=== PATIENT | female | born 2000 | race African-American/Black ===

== ENCOUNTER 2023-11-02 22:53 | Observation (INO) | payer OTHER, SELFPAY ==
--- NOTE | 2023-11-02 23:21 | DI.US.S_ITS ---
PROCEDURE: US OB LIMITED INDICATIONS: vaginal bleeding: placenta location/status, YEHUDA OUTSIDE/PRIOR DATING DATA: Last menstrual period (LMP): 02/22/2023. LMP-based estimated date of delivery (QUINTON): 02/28/2024. First dating scan (date and location): Not applicable. Estimated date of delivery (QUINTON) from first dating scan: Not applicable. The calculations are made using the clinical QUINTON of 02/28/2024. TECHNIQUE: Real-time scanning was performed of the fetus, with image documentation and biometric measurements. Biophysical profile was also obtained. Endovaginal scanning: COMPARISON: None. FINDINGS: General: A single living intrauterine gestation is present. Presentation: Breech. Placenta: Placental position is posterior , without previa. Amniotic fluid index: 13.9 cm, normal range is 5-24 cm. Single deepest vertical pocket is 4.0 cm. heart rate: 125 beats per minute. Maternal cervical canal: 3.5 cm long. Normal lower limit is 2.5 cm. Clinically estimated gestational age: Not applicable Composite gestational age from present scan: 23 week 2 day Visualized anatomy is within normal limits. Probable uterine fibroid right posterior 2.6 x 2.0 x 2.9 cm IMPRESSION: Single live intrauterine consistent with 23 week 2 day gestation Uterine fibroid For reference only DELETE FROM FINAL REPORT Less than 28 weeks; normal is <5 28-34 weeks; normal is <4 >34 weeks; normal is <3.5 Measurement variability for biometric dating: +/- 7 days from 14 weeks to 15 weeks 6 days gestation, +/- 10 days from 16 weeks to 21 weeks 6 days gestation, +/- 2 weeks from 22 weeks to 27 weeks 6 days gestation, +/- 3 weeks for 28 weeks gestation or later. weight reference: 4500 g or EFW >90/95% is considered macrosomia or large for gestational age. EFW <10% is small for gestational age. EFW 5% or less is considered intra-uterine growth restriction. Approved by: Dusty Cat M.D. on 11/03/2023 at 0:43
[2023-11-02 23:40] LABS: Appearance Urine UA CLEAR; Bilirubin Urine UA NEGATIVE (NEGATIVE); Glucose Urine UA NEGATIVE (Negative); Ketones Urine UA NEGATIVE (NEGATIVE); Leukocyte Esterase Urine UA NEGATIVE (NEGATIVE); Nitrite Urine UA NEGATIVE (Negative); Occult Blood Urine UA TRACE-INTACT (Negative); Protein Urine UA NEGATIVE (Negative); Specific Gravity Urine UA <=1.005 (1.000-1.035); Urobilinogen Urine UA 0.2 E.U./dL (0.2)
[2023-11-02 23:41] LABS: Color Urine UA Straw
== END 2023-11-03 01:00 | disposition home or self-care (01) ==
PROVIDERS: Admitting Provider Family Medicine; Referring Provider Family Medicine; Visit Provider Family Medicine
DX: O26.892 Other specified pregnancy related conditions, second trimester (principal); M54.9 Dorsalgia, unspecified; Z3A.23 23 weeks gestation of pregnancy
CPT/HCPCS: 76815; 81003; G0378; G0379

== ENCOUNTER → 2023-11-07 07:28 | Outpatient (CLI) | payer OTHER, SELFPAY ==
--- NOTE | 2023-11-07 07:29 | DI.US.S_ITS ---
PROCEDURE: US OB >= 14 WEEKS FETUS INDICATIONS: anatomy, overdue OUTSIDE/PRIOR DATING DATA: Last menstrual period (LMP): 05/24/2023. LMP-based estimated date of delivery (QUINTON): 02/28/2024. First dating scan (date and location): Unknown. Estimated date of delivery (QUINTON) from first dating scan: Unknown. The calculations are made using the clinical QUINTON of 02/28/2024. TECHNIQUE: Real-time scanning was performed of the fetus, with image documentation and biometric measurements. COMPARISON: [facility], OB LIMITED, 11/03/2023, 0:13. FINDINGS: General: A single living intrauterine gestation is present. Presentation: Breech. Placenta: Placental position is posterior , without previa. Amniotic fluid index: 14.6 cm, normal range is 5-24 cm. Single deepest vertical pocket is 4.7 cm. heart rate: 120 beats per minute. Maternal cervical canal: 4.2 cm long. Normal lower limit is 2.5 cm. biometrics: Biparietal diameter: 5.5 cm 22 weeks 6 days Head circumference: 21.3 cm 23 weeks 3 days Abdominal circumference: 19.5 cm 24 weeks 1 day Femur length: 4.4 cm 24 weeks 4 days Clinically estimated gestational age: 23 weeks 6 days Composite gestational age from present scan: 23 weeks 5 days Estimated weight and percentile: 668 g 56th percentile Anatomic survey: Neuro: Ventricles are non-dilated at less than 10 mm. Cisterna magna is normal at 3-11 mm. Cerebellum is normal in size and morphology. Nuchal skin fold: Normal at less than 6 mm between 14-21 weeks gestational age. Face: Nose and lips, facial profile are normal. Spine: No evidence for spina bifida. Heart: 4-chambered heart is present, with normal ventricular outflow tracts. Diaphragm: Diaphragm is intact. Stomach: Left-sided stomach is present. Kidneys: No hydronephrosis. Normal is less than 5 mm in 2nd trimester, less than 7 mm in 3rd trimester. Cord: 3-vessel cord has orthotopic insertion. Bladder: Normal in size. Extremities: All 4 extremities identified. Other: Right posterior intramural fibroid is again noted, similar in size currently measuring 2.5 x 2.8 x 2.0 cm compared to 2.6 x 2.0 x 2.9 cm. IMPRESSION: Single live intrauterine with gestational age today of 23 weeks 5 days. Anatomy is within normal limits. We strive to produce accurate, complete, and clear reports of imaging services. To assist us in improving patient care, this report was composed using standard report templates and voice recognition software. Therefore, it may contain abnormal punctuation, insertions and/or omissions. Occasional wrong-word or sound-alike substitutions may occur. Though we review the report and make efforts to correct it, we do recommend that the report be read carefully in proper context to recognize any text inaccuracies. Dictated by: Johana Lynn M.D. on 11/07/2023 at 9:15 Approved by: Johana Lynn M.D. on 11/07/2023 at 9:21
== END ==
LOC: US 07:29
PROVIDERS: Referring Provider Family Medicine; Visit Provider Family Medicine
DX: Z34.82 Encounter for supervision of other normal pregnancy, second trimester (principal); Z3A.23 23 weeks gestation of pregnancy
CPT/HCPCS: 76811

== ENCOUNTER → 2023-11-28 12:48 | Outpatient (CLI) | payer OTHER, SELFPAY ==
[2023-11-28 14:41] LABS: Add Manual Diff / Slide Review NO; Basophils Absolute Auto 0 /uL (0-100); Basophils Percent Auto 0.2 % (0-2); Eosinophils Absolute Auto 100 /uL (0-450); Hematocrit 30.2 % (36-46); Hemoglobin 10.5 g/dL (12.0-16.0); Lymphocytes Absolute Auto 2400 /uL (1100-4500); Mean Corpuscular HGB Conc 34.9 % (30-36); Mean Corpuscular Hemoglobin 30.4 PG (26-34); Mean Corpuscular Volume 87.3 fL (80-100); Monocytes Absolute Auto 1100 /uL (0-900); Monocytes Percent Auto 10.3 % (3-14); Neutrophils Absolute Auto 7200 /uL (1500-7000); Neutrophils Percent Auto 66.5 % (50-75); Platelet Count 298 X10^3/uL (150-400); Red Blood Cell Count 3.45 X10^6/uL (4.0-5.2); Red Cell Distribution Width 14.1 % (11.6-14.8); White Blood Cell Count 10.8 X10^3/uL (4.5-11.0)
[2023-11-28 15:13] LABS: Alanine Aminotransferase 11 IU/L (<35); Aspartate Aminotransferase 18 IU/L (14-36); BUN Creatinine Ratio 10.7 (6-22); Blood Urea Nitrogen 6 mg/dL (7-17); Estimated Glomerular Filt Rate > 60 mL/min (>60); GTT (PREG) 1 Hour PP 50gm Dose 111 mg/dL (76-139); Uric Acid 3.9 mg/dL (2.5-6.2)
== END ==
PROVIDERS: Referring Provider Family Medicine; Visit Provider Family Medicine
DX: O13.9 Gestational [pregnancy-induced] hypertension without significant proteinuria, unspecified trimester (principal)
CPT/HCPCS: 82565; 82950; 84450; 84460; 84520; 84550; 85025

== ENCOUNTER → 2024-02-06 11:43 | Outpatient (CLI) | payer OTHER, SELFPAY ==
[2024-02-07 12:41] LABS: Strep Grp B PCR NEG for Grp B Strep
== END ==
PROVIDERS: Visit Provider Family Medicine
DX: Z34.80 Encounter for supervision of other normal pregnancy, unspecified trimester (principal)
CPT/HCPCS: 87653

== ENCOUNTER 2024-02-13 16:36 | Outpatient (CLI) | payer OTHER, SELFPAY ==
--- NOTE | 2024-02-13 18:09 | P.TNLD_ITS ---
Visit Information Visit Information Date of evaluation: 02/13/24 Primary OB Provider: Donald Cantu Reason for Evaluation: Yes rupture of membranes Comments/Additional reasons for admission: 23-year-old at [place] 37+6 weeks sent to L and D from clinic due to report of intermittent leakage of fluid for past 4 days. Endorses normal movement, denies vaginal bleeding or regular contractions. notable for anemia on iron supplement, GERD on H2 glo. She is also taking baby aspirin daily for preeclampsia prophylaxis due to presence of multiple medium risk factors. [facility] Surgical History (Updated 10/30/23 @ 10:36 by Arleen Landon RN) H/O dilation and curettage [place] teeth extracted Family History (Updated 10/30/23 @ 10:43 by Arleen Landon RN) Grandfather Hypertension Grandmother Cervical cancer Grandfather Hyperlipidemia Grandmother Hyperlipidemia Mother Gynecological disorder Tumor of thyroid Sister Asthma Social History marital status: unmarried,single number of children: 0 household members: none lives independently: Yes caregiver/support person: No housing: apartment pets and animals: No education level: high school occupational status: employed current occupational exposures/hazards: Yes (X-rays) special marcela needs: No travel history: recent seatbelt use: sometimes water heater temp set < 120 deg: Yes working smoke detector in home: Yes fire extinguisher in home: Yes carbon monox detector in home: Yes firearms in home: No do you feel safe at home: Yes Smoking Status: Former smoker Tobacco: How many years used: 2 second hand exposure: No alcohol intake: former substance use type: does not use during the past year weight has: remained stable well-balanced diet: about half the time daily servings fruits/ve-4 caffeine: No Type(s) of exercise: walking Review of Systems Review of Systems ROS: Yes All systems reviewed with the patient and are negative except as otherwise documented Exam Narrative Exam Narrative: General: Well-nourished, no distress HEENT: NC/AT, EOMI, moist mucous membranes CV: RRR, normal S1 S2, no m/g/r Resp: CTAB Abd: Gravid, soft, NTND, +BS : Normal external female genitalia, vaginal mucosa pink and moist, speculum exam in clinic revealed moderate white vaginal discharge but no pooling or fluid leaking from cervical os, which is closed on visual examination Ext: Full ROM, no edema Skin: No rash or lesions Neuro: A&O x3, normal tone, no focal deficits Evaluation Evaluation Baseline heart rate: 125 Variability: Moderate (11-25) monitor accelerations: Present Monitor Decelerations: Absent Category of Tracing: Reactive Status: Category l Non-invasive Membranes Rupture Test: negative Diagnosis, Plan/Disposition Final Diagnosis (1) 37 weeks gestation of : Status: Acute (2) Vaginal discharge during in third trimester: Status: Acute Plan/Disposition Plan: Speculum exam reassuring, AmniSure negative for rupture of membranes. NST reactive with category 1 strip. Discharged home with labor precautions, follow- up in 1 week for routine care. OB Disposition: home
== END 2024-02-13 17:25 | disposition home or self-care (01) ==
LOC: OB 02-17 06:37
PROVIDERS: Referring Provider Family Medicine; Visit Provider Family Medicine
DX: O26.893 Other specified pregnancy related conditions, third trimester (principal); N89.8 Other specified noninflammatory disorders of vagina; Z3A.37 37 weeks gestation of pregnancy
CPT/HCPCS: 59025; 84112; G0378; G0379

== ENCOUNTER 2024-02-15 19:36 | Outpatient (CLI) | payer OTHER, SELFPAY | END 2024-02-15 20:21 | disposition home or self-care (01) | LOC: OB 02-17 06:39 | PROVIDERS: Referring Provider Obstetrics & Gynecology; Visit Provider Obstetrics & Gynecology | DX: O36.8130 Decreased fetal movements, third trimester, not applicable or unspecified (principal); Z3A.38 38 weeks gestation of pregnancy | CPT/HCPCS: 59025; G0378; G0379 ==

== ENCOUNTER 2024-02-23 01:53 | Inpatient (IN) | payer OTHER, SELFPAY ==
[2024-02-23 03:42] LABS: Add Manual Diff / Slide Review NO; Basophils Absolute Auto 0 /uL (0-100); Basophils Percent Auto 0.3 % (0-2); Eosinophils Absolute Auto 100 /uL (0-450); Eosinophils Percent Auto 0.9 % (2-4); Hematocrit 33.8 % (36-46); Hemoglobin 11.7 g/dL (12.0-16.0); Lymphocytes Absolute Auto 2100 /uL (1100-4500); Lymphocytes Percent Auto 22.3 % (25-40); Mean Corpuscular HGB Conc 34.5 % (30-36); Mean Corpuscular Hemoglobin 30.2 PG (26-34); Mean Corpuscular Volume 87.6 fL (80-100); Monocytes Absolute Auto 1000 /uL (0-900); Monocytes Percent Auto 10.4 % (3-14); Neutrophils Absolute Auto 6200 /uL (1500-7000); Neutrophils Percent Auto 66.1 % (50-75); Platelet Count 266 X10^3/uL (150-400); Red Blood Cell Count 3.86 X10^6/uL (4.0-5.2); Red Cell Distribution Width 14.1 % (11.6-14.8); White Blood Cell Count 9.4 X10^3/uL (4.5-11.0)
[2024-02-23 03:54] LABS: Alanine Aminotransferase 21 IU/L (<35); Albumin 3.4 g/dL (3.5-5.0); Alkaline Phosphatase 146 U/L (38-126); Aspartate Aminotransferase 29 IU/L (14-36); BUN Creatinine Ratio 10.6 (6-22); Bilirubin Total 0.3 mg/dL (0.2-1.3); Blood Urea Nitrogen 7 mg/dL (7-17); Calcium 9.4 mg/dL (8.4-10.2); Carbon Dioxide 22 mmol/L (22-32); Chloride 106 mmol/L (98-107); Estimated Glomerular Filt Rate > 60 mL/min (>60); Globulin 3.3 g/dL (1.7-4.1); Glucose 107 mg/dL (70-100); HEMOLYSIS < 15 (0-50); Potassium 3.9 mmol/L (3.4-5.1); Sodium 132 mmol/L (137-145); Total Protein 6.7 g/dL (6.3-8.2); Uric Acid 5.9 mg/dL (2.5-6.2)
[2024-02-23 04:02] LABS: Creatinine Urine Random 78.41 mg/dL; Protein (Total) Urine Random 12 mg/dL (0-12); Protein Creatinine Ratio Urine 0.15 GRAM/24H
[2024-02-23] MEDS: fentaNYL 100 MCG/2 ML INJ IV ×2 (04:32→07:27)
--- NOTE | 2024-02-23 08:44 | PM.AN.REGBLK ---
Regional Block Pre-procedure Procedure: Continuous Lumbar Epidural for L&D Attending OB provider: Donald Cantu PMH/ROS narrative: term labor, no medical or obstetric complications. Hx of PIH, BP's normal. ASA Class: II Labs: Hct 33.8 % (36-46) L 02/23/24 03:00 Plt Count 266 X10^3/uL (150-400) 02/23/24 03:00 Medications: Current Medications Generic Name Dose Route Start Last Admin Trade Name Freq PRN Reason Stop Dose Admin Carboprost Tromethamine 250 mcg 02/23/24 02:48 Carboprost 250 Mcg/Ml Ampul IM Q90M PRN Bleeding Diphenhydramine HCl 25 mg 02/23/24 07:53 Diphenhydramine 50 Mg/Ml Vial IV Q10M PRN Pruritis Fentanyl 100 mcg 02/23/24 04:20 02/23/24 07:27 Fentanyl 100 Mcg/2 Ml Inj IV 100 mcg Q1H PRN Administration Pain, Severe (7-10) Lactated Ringer's 1,000 mls @ 100 mls/hr 02/23/24 03:00 Lactated Ringers IV 02/23/24 12:59 CONT CHERI Oxytocin/Lactated Ringer's 30 unit in 500 mls @ 200 mls/hr 02/23/24 02:48 Oxytocin Premix IV CONT PRN Bleeding Protocol Tranexamic Acid 1,000 mg/ 100 mls @ 600 mls/hr 02/23/24 02:48 Sodium Chloride IV NOW PRN Bleeding FENT 2MCG/ML BUPIV 0.125% EPI 200 mcg in 100 mls @ 6 mls/hr 02/23/24 08:00 Fentanyl/Bupiv/Ns 2mcg/Ml - 0.125% EPIDURAL CONT CHERI Lidocaine HCl 20 ml 02/23/24 02:48 Lidocaine 1% 20 Ml INJ INTRA-OP PRN Post Delivery Methylergonovine Maleate 0.2 mg 02/23/24 02:48 Methylergonovine 0.2 Mg Tablet PO Q6HR PRN Heavy Bleeding Methylergonovine Maleate 0.2 mg 02/23/24 02:48 Methylergonovine 0.2 Mg/Ml Vial IM NOW PRN Bleeding Mineral Oil 30 ml 02/23/24 02:48 Mineral Oil 30 Ml Udc TOP PRN PRN Version Misoprostol 800 mcg 02/23/24 02:48 Misoprostol 200 Mcg Tablet IL NOW PRN Bleeding Misoprostol 400 mcg 02/23/24 02:48 Misoprostol 200 Mcg Tablet SL NOW PRN Bleeding Nalbuphine HCl 2.5 mg 02/23/24 07:53 Nalbuphine 20 Mg/Ml Ampul IV Q10M PRN Pruritis Naloxone HCl 0.2 mg 02/23/24 02:48 Naloxone 0.4 Mg/Ml Vial IV Q2MIN PRN Opiate Reversal Ondansetron HCl 4 mg 02/23/24 02:48 Ondansetron 4 Mg/2 Ml Inj IV Q4HR PRN Nausea And Vomiting Oxytocin 10 unit 02/23/24 02:48 Oxytocin 10 Unit/Ml Vial IM NOW PRN Bleeding Allergies: Allergies Allergy/AdvReac Type Severity Reaction Status Date / Time No Known Drug Allergies Allergy Verified 02/06/24 11:56 Procedure Insertion date: 02/23/24 Insertion time: 08:08 Prep/Local: betadine x3 and 1% lidocaine Interspace: L34 Patient position: sitting Needle: 18 gauge Advanced Liquid Logictead (CSE: 27g Pencan through Hustead. Clear CSF, 1mL 0.25% MPF bupiv.) Loss of resistance with: saline CASSIE at (cm): 5 Catheter placed at SKIN (cm): 11 Catheter in SPACE (cm): 6 Insertion: No CSF, No Blood, No Paresthesia with insertion, No Paresthesia with injection and No Test dose reaction Initial Medications TEST DOSE time: 08:10 TEST DOSE: 1.5% lidocaine with epinephrine 1:200k (mL): 3 BOLUS DOSE time: 08:20 BOLUS DOSE (mL): 4 BOLUS DOSE med: other (infusate) Infusion INFUSION: 0.125% bupivacaine and with fentanyl 2 mcg/mL Initial rate (mL/hr): 10 Post-procedure Anesthesia date START: 02/23/24 Anesthesia time START: 08:00 Anesthesia date END: 02/23/24 Anesthesia time END: 11:28 Post-procedure Anesthesia Assessment: Yes CV function: HR/BP stable, Yes Resp function: RR/sat/airway adequate, Yes Post-op hydration adequate, Yes Pain control adequate, Yes Nausea & vomiting absent, Yes Temperature > 36 C, Yes Mental status appropriate and No Anesthesia complications
--- NOTE | 2024-02-23 09:22 | PM.OBHP.IH.1 ---
OB HPI Date/Time Date of admission: 02/23/24 Date Patient Seen: 02/23/24 Time Patient Seen: 09:22 History of Present Condition Chief complaint: labor QUINTON Calculator Estimated Delivery Date Method Current WG Current Estimate 02/28/24 LMP (Certain) 39w 2d Estimated Gestational Age (weeks): 39+2 : 3 Para: 0 Narrative: 23-year-old at [place] 39+2 weeks presenting for rupture of membranes. Endorses normal movement. Denies vaginal bleeding. notable for anemia on iron supplement. care: good care Dating criteria OB: LMP confirmed by 1st trimester US Ultrasounds: normal 1st trimester US and normal mid trimester US Abnormal ultrasound findings: Probable uterine fibroid right posterior 2.6 x 2.0 x 2.9 cm Obstetrical complications: none Medical complications OB: none Preadmission Labs Last OB Lab Results: Blood Type O Positive 02/23/24 03:00 Antibody Screen Negative 02/23/24 03:00 Hct 33.8 % (36-46) L 02/23/24 03:00 Hgb 11.7 g/dL (12.0-16.0) L 02/23/24 03:00 Glucose 1 Hr 50 gm 111 mg/dL (76-139) 11/28/23 14:00 Group B Strep (PCR) Neg for grp b strep 02/06/24 12:10 -: Chlamydia screen: negative and Gonorrhea screen: negative Genetic Screens: Cell-free DNA: Normal Prior (ies) Past Pregnancies Del. Date GA/Weeks Labor Lgth Wt Sex Route Outcome Anesthesia Place Delv Breastfeed Preg Comp Name 12/08/16 16 elective 05/10/19 7 elective Delivery Date: 12/08/16 Last Updated by: Arleen Landon RN D&C, no complications Delivery Date: 05/10/19 Last Updated by: Arleen Landon RN D&C, no complications Evaluation Evaluation Baseline heart rate: 130 Variability: Moderate (11-25) monitor accelerations: Present Monitor Decelerations: Absent Contraction Frequency (minutes): 3 Uterine Contraction Intensity: Moderate Category of Tracing: Reactive Status: Category l Dilation (cm): 10 Effacement (%): 100 station: 0 PFSH Surgical History (Updated 10/30/23 @ 10:36 by Arleen Landon RN) H/O dilation and curettage [place] teeth extracted Family History (Updated 10/30/23 @ 10:43 by Arleen Landon RN) Grandfather Hypertension Grandmother Cervical cancer Grandfather Hyperlipidemia Grandmother Hyperlipidemia Mother Gynecological disorder Tumor of thyroid Sister Asthma Social History marital status: unmarried,single number of children: 0 household members: none lives independently: Yes caregiver/support person: No housing: apartment pets and animals: No education level: high school occupational status: employed current occupational exposures/hazards: Yes (X-rays) special marcela needs: No travel history: recent seatbelt use: sometimes water heater temp set < 120 deg: Yes working smoke detector in home: Yes fire extinguisher in home: Yes carbon monox detector in home: Yes firearms in home: No do you feel safe at home: Yes Smoking Status: Never smoker Tobacco: How many years used: 2 second hand exposure: No alcohol intake: former substance use type: does not use during the past year weight has: remained stable well-balanced diet: about half the time daily servings fruits/ve-4 caffeine: No Type(s) of exercise: walking Meds Home Medications and Allergies Home Medications Medication Instructions Recorded Confirmed Type vit no.95-ferrous 1 tab PO DAILY 10/30/23 02/06/24 History fumarate 28 mg-folic acid 800 mcg tablet ( Multivitamins) aspirin 81 mg tablet,delayed 81 mg PO DAILY #90 tabs 11/07/23 02/06/24 Rx release polyethylene glycol 3350 17 17 g PO DAILY #510 grams 11/07/23 02/06/24 Rx gram/dose oral powder (Laxative PEG 3350) ferrous fumarate 89 mg (29 mg 89 mg PO DAILY #30 tabs 12/06/23 02/06/24 Rx iron) tablet famotidine 20 mg tablet 20 mg PO BID #60 tabs 02/18/24 Rx Allergies Allergy/AdvReac Type Severity Reaction Status Date / Time No Known Drug Allergies Allergy Verified 02/06/24 11:56 OB Exam Narrative Exam Narrative: General: Well-nourished, no distress HEENT: NC/AT, EOMI, moist mucous membranes CV: RRR, normal S1 S2, no m/g/r Resp: CTAB Abd: Gravid, soft, NTND, +BS Ext: Full ROM, no edema Skin: No rash or lesions Neuro: A&O x3, normal tone, no focal deficits Objective Labs 02/23/24 03:00 02/23/24 03:00 Labs: Laboratory Results - last 24 hr 02/23/24 02/23/24 03:00 03:15 WBC 9.4 RBC 3.86 L Hgb 11.7 L Hct 33.8 L MCV 87.6 MCH 30.2 MCHC 34.5 RDW 14.1 Plt Count 266 Neut % (Auto) 66.1 Lymph % (Auto) 22.3 L [place] % (Auto) 10.4 Eos % (Auto) 0.9 L Baso % (Auto) 0.3 Neut # (Auto) 6200 Lymph # (Auto) 2100 [place] # (Auto) 1000 H Eos # (Auto) 100 Baso # (Auto) 0 Sodium 132 L Potassium 3.9 Chloride 106 Carbon Dioxide 22 BUN 7 Creatinine 0.66 Estimated GFR > 60 BUN/Creatinine Ratio 10.6 Glucose 107 H Uric Acid 5.9 Calcium 9.4 Total Bilirubin 0.3 AST 29 ALT 21 Alkaline Phosphatase 146 H Total Protein 6.7 Albumin 3.4 L Globulin 3.3 Albumin/Globulin Ratio 1.0 U Random Total Protein 12 Urine Creatinine 78.41 Protein/Creatinin Ratio 0.15 Blood Type O Positive Antibody Screen Negative Assessment and Plan Assessment and Plan Assessment and Plan narrative: 23-year-old at [place] 39+2 weeks presenting in labor. -admit to L&D -GBS negative, ppx not indicated -pain control prn if desired by patient -PPH risk low -VTE risk low, SCDs with epidural -anticipate vaginal delivery Time-Based Coding :: 30 minutes spent with patient and on the chart (including review of chart, obtaining history, exam, reviewing outside data, placing orders, documenting exam and treatment plan, and counseling patient) on 02/23/2024.
[2024-02-23] MEDS: OXYTOCIN PREMIX 30 UNIT/500 ML PLAST..BAG 200 UNIT IV (10:24)
--- NOTE | 2024-02-23 12:00 | PM.OBPRVD ---
Labor & Delivery Delivery date: 02/23/24 Intrapartal Events: None Delivery augmentation: pitocin Delivery monitor: external FHT Route of delivery: L&D Laceration Description: Perineal - 2nd Degree Delivery repair: vicryl Estimated blood loss (mL): 200 Anesthesia Type: Epidural Narrative: Admitted at 0245 on 02/23/24 after SROM at 0030. Patient fully dilated at 0853 and began pushing at 0930. Spontaneous vaginal delivery of a viable female infant in the OA position occurred at 1118. The was suctioned and stimulated at the perineum, and gave appropriate cry with movement of all extremities. Delayed cord clamping was observed for 60 seconds. The cord was clamped and cut, and the handed to mother for skin to skin. Cord blood and segment were obtained. The placenta was delivered without difficulty using gentle cord traction and found to be intact with a 3-vessel cord. After fundal massage the uterus was firm and bleeding stopped. The vagina and cervix were examined for lacerations. A second-degree perineal laceration was noted and repaired with 3-0 Vicryl suture in the usual fashion. Patient stable with rooming in, bonding skin to skin and attempting to breastfeed. Baby 1: Infant gender: Female Presentation: vertex Placenta delivery description: Spontaneous Cord Vessel Description: 3 Vessels score (1 min): 8 score (5 min): 9 weight: 9 lb 11.452 oz Plan for aftercare: Routine care
[2024-02-23] MEDS: LACTATED RINGERS 1,000 ML 100 ML IV (12:27)
[2024-02-23] MEDS: FENT 2MCG/ML BUPIV 0.125% EPI 200 MCG/100 ML PLAST..BAG 6 MCG EPIDURAL (12:28)
[2024-02-23] MEDS: IBUPROFEN 600 MG TABLET PO (20:39)
[2024-02-24] MEDS: IBUPROFEN 600 MG TABLET PO ×3 (02:48→14:28)
[2024-02-24] MEDS: ACETAMINOPHEN 325 MG TABLET 650 MG PO (07:05)
[2024-02-24] MEDS: DERMOPLAST SPRAY 20% 60 ML 1 SPRAY TOP (08:35)
[2024-02-24] MEDS: WITCH HAZEL/GLYCERIN PADS 1 EACH TOP (08:35)
[2024-02-24] MEDS: LANOLIN OINT 7 GM 1 APPLIC TOP (08:35)
[2024-02-24] MEDS: FERROUS SULFATE 325 MG TABLET PO (08:36)
[2024-02-24] MEDS: PRENATAL VIT,CALC/IRON/FOLIC 1 TABLET 1 TAB PO (08:36)
[2024-02-24] MEDS: DOCUSATE 100 MG CAPSULE PO (08:36)
--- NOTE | 2024-02-24 12:43 | P.DS_ITS ---
Discharge Providers Provider Date of admission: 02/23/24 01:53 Discharge Date: 02/24/24 Primary care physician: Jacky LAN Provider Consults: 02/23/24 02:49 Consult to Anesthesiology Urgent Comment: Consulting Provider: Anesthesiologist Reason for consultation: Epidural 02/24/24 12:06 Consult to Material Requirements Worker Routine Comment: Discharge provider: Donald Cantu MD Summary Hospital Course Date Patient Seen: 02/24/24 Time Patient Seen: 12:43 Diagnoses: #term labor # #second-degree perineal laceration Hospital Course: Admitted for normal labor on 02/23/2024. Progressed adequately without augmentation to complete dilation over the course of 9 hours. She had an uncomplicated of a live female with a second-degree perineal laceration that was repaired in the usual fashion. Her course was uncomplicated. At discharge patient is ambulating well, tolerating normal diet, breast-feeding without difficulty, and pain is adequately controlled. She reports bleeding is similar to normal menses. Peripartum Data Delivery Method: Natural Vaginal Laceration Description: Perineal - 2nd Degree complications: none [place] 1: Gender: Female Discharge Diagnosis (1) (spontaneous vaginal delivery): Status: Acute (2) Second degree perineal laceration: Status: Acute (3) Mother currently breast-feeding: Status: Acute Status at Discharge Cognitive/behavioral status at discharge: at baseline, oriented Functional status at discharge: independent ambulation Overall status at discharge: patient is progressing back to baseline Time Spent with Patient Time attestation: Total time spent providing and/or coordinating discharge services: 30 minutes Objective Labs 02/23/24 03:00 02/23/24 03:00 Exam Narrative Exam Narrative: General: Well-appearing, well-nourished, no distress HEENT: Moist mucous membranes, no pallor CV: Regular rate and rhythm, no murmur auscultated Resp: CTAB, comfortable work of breathing Abdomen: Soft, bowel sounds present, fundus firm below umbilicus with appropriate tenderness Extremities: No edema, no calf tenderness or evidence of DVT Discharge Plan Discharge Plan Patient Disposition: Home Discharge orders & Medications Prescriptions: New Dermoplast (with menthol) 20-0.5 % Aerosol 1 spray topical Q1HR PRN (Reason: perineal pain) Qty: 78 1RF ibuprofen 600 mg Tablet 600 mg PO Q6HR PRN (Reason: Pain, Mild (1-3)) Qty: 90 1RF Purelan Cream 1 applic topical PRN PRN (Reason: Tenderness) Qty: 7 2RF Continued polyethylene glycol 3350 [Laxative PEG 3350] 17 gram/dose powder 17 g PO DAILY Qty: 510 3RF ferrous fumarate 89 mg (29 mg iron) tablet 89 mg PO DAILY Qty: 30 3RF famotidine 20 mg tablet 20 mg PO BID Qty: 60 2RF PNV cmb#95-ferrous fumarate-FA [ Multivitamins] 28 mg iron- 800 mcg tablet 1 tab PO DAILY Discontinued aspirin 81 mg tablet,delayed release (DR/EC) 81 mg PO DAILY Qty: 90 1RF Follow up/Referrals: Donald Cantu MD [Physician] - 04/07/24 2:00 pm (Follow up with Dr. Cantu for your 6 week appointment on 04/07/24 @2:00pm please check in at 1:45pm!) ProviderJacky [Primary Care Provider] - Visit Report/Discharge Packet Instructions: Depression, Hemorrhage Stand Alone Forms: Discharge: Care, Patient Portal/API, Stroke Signs & Symptoms Discharge Data Primary Care Provider: Jacky Rosenberg
== END 2024-02-24 15:27 | disposition home or self-care (01) | DRG 807 ==
PROVIDERS: Admitting Provider Family Medicine; Referring Provider Family Medicine; Visit Provider Family Medicine
DX: O42.02 Full-term premature rupture of membranes, onset of labor within 24 hours of rupture (principal); Z37.0 Single live birth; O70.1 Second degree perineal laceration during delivery; Z3A.39 39 weeks gestation of pregnancy
CPT/HCPCS: 36415; 59050; 80053; 84550; 85025; 86850; 86900; 86901; G0379; J2590; J3010